=== PATIENT | female | born 1990 | race Caucasian/White ===

== ENCOUNTER 2019-02-02 16:03 | Day surgery (SDC) | payer SELFPAY ==
[~2019-02-02 16:03] MED LIST: BUPIVACAINE HCL/PF 0.5% (5 MG/ML) 30 ML VIAL IJ ONE
[2019-02-02 16:11] VITALS: BMI 29.5
[2019-02-02] MEDS ORDERED: SODIUM CHLORIDE 1,000 ML IV STA (17:22)
[2019-02-02] MEDS ORDERED: ACETAMINOPHEN 1000 MG/100 ML VIAL (NON FORMULARY) IVPB ONE (17:22)
[2019-02-02] MEDS ORDERED: ONDANSETRON 4 MG/2 ML VIAL IVPUSH ONE (17:23)
[2019-02-02 17:50] LABS: PH,URINE 5.5 (5.0-8.0); URINE APPEARANCE CLEAR; URINE BILIRUBIN NEGATIVE (NEGATIVE); URINE COLOR YELLOW; URINE GLUCOSE (UA) NEGATIVE (NEGATIVE); URINE KETONE NEGATIVE (NEGATIVE); URINE LEUK ESTERASE NEGATIVE (NEGATIVE); URINE NITRITE NEGATIVE (NEGATIVE); URINE PROTEIN NEGATIVE (NEGATIVE); URINE UROBILINOGEN 0.2 mg/dL (0.2-1.0)
[2019-02-02 18:03] LABS: BASO % 0.3 % (0-2.0); EOS % 0.5 % (0-4.5); HEMATOCRIT 42.3 % (32.4-45.2); HEMOGLOBIN 13.8 GM/dL (10.7-15.3); LYMPH % 20.9 % (8-40); MCH 27.6 pg (25.7-33.7); MCHC 32.5 g/dl (32.0-36.0); MEAN CELL VOLUME 84.8 fl (80-96); MEAN PLT VOLUME 8.5 fl (7.5-11.1); MONO % 7.1 % (3.8-10.2); NEUT % 71.2 % (42.8-82.8); PLATELET COUNT 301 K/MM3 (134-434); RBC 4.99 M/mm3 (3.60-5.2); RDW 13.9 % (11.6-15.6); WHITE BLOOD COUNT 12.6 K/mm3 (4.0-10.0)
[2019-02-02] MEDS ORDERED: ACETAMINOPHEN INJECTION 100 ML IVPB ONE (18:10)
[2019-02-02] MEDS ORDERED: ONDANSETRON 4 MG/2 ML VIAL ONE (18:11)
[2019-02-02 18:16] LABS: INR 1.08 (0.83-1.09); PROTHROMBIN TIME (PATIENT) 12.7 SEC (9.7-13.0)
[2019-02-02 18:39] LABS: ALBUMIN 4.1 g/dl (3.4-5.0); BILIRUBIN,TOTAL 0.4 mg/dL (0.2-1); BLOOD UREA NITROGEN 8.1 mg/dL (7-18); CALCIUM 9.5 mg/dL (8.5-10.1); CREATININE 0.7 mg/dL (0.55-1.3); POTASSIUM 3.9 mmol/L (3.5-5.1); TOT PROT 7.9 g/dl (6.4-8.2)
--- NOTE | 2019-02-02 19:14 | PDOC ---
History of Present Illness - General History Source: Patient Exam Limitations: No Limitations <Geetha Lamas - Last Filed: 02/03/19 08:48> <MicheletCorey - Last Filed: 02/06/19 15:02> - General Chief Complaint: Pain, Acute Stated Complaint: LOWER ABD PAIN Time Seen by Provider: 02/02/19 17:03 Past History - Past Medical History COPD: No - Reproductive History Is Patient Now?: Yes - Suicide/Smoking/Psychosocial Hx Smoking History: Never smoked Hx Alcohol Use: Yes Drug/Substance Use Hx: No <JuanharrisGeetha torres - Last Filed: 02/03/19 08:48> <MicheletCorey - Last Filed: 02/06/19 15:02> - Past Medical History Allergies/Adverse Reactions: Allergies Allergy/AdvReac Type Severity Reaction Status Date / Time No Known Allergies Allergy Verified 02/02/19 16:11 Review of Systems - Review of Systems Able to Perform ROS?: Yes Comments:: 02/03/19 08:48 CONSTITUTIONAL: Absent: fever, chills, diaphoresis, generalized weakness, malaise, loss of appetite HEENT: Absent: rhinorrhea, nasal congestion, throat pain, throat swelling, difficulty swallowing, mouth swelling, ear pain, eye pain, visual Changes CARDIOVASCULAR: Absent: chest pain, loss of consciousness, palpitations, irregular heart rate, peripheral edema RESPIRATORY: Absent: cough, shortness of breath, dyspnea with exertion, orthopnea, wheezing, stridor, hemoptysis GASTROINTESTINAL: Present: abdominal pain, vomiting Absent: abdominal distension, diarrhea, constipation, melena, hematochezia GENITOURINARY: Absent: dysuria, frequency, urgency, hesitancy, hematuria, flank pain, genital pain MUSCULOSKELETAL: Absent: myalgia, arthralgia, joint swelling SKIN: Absent: rash, itching, pallor HEMATOLOGIC/IMMUNOLOGIC: Absent: easy bleeding, easy bruising, lymphadenopathy, frequent infections ENDOCRINE: Absent: unexplained weight gain, unexplained weight loss, heat intolerance, cold intolerance NEUROLOGIC: Absent: headache, focal weakness or paresthesias, dizziness, unsteady gait, seizure, mental status changes, bladder or bowel incontinence PSYCHIATRIC: Absent: anxiety, depression, suicidal or homicidal ideation, hallucinations. Is the patient limited Luxembourger proficient: No <JuanharrismelissaGeetha - Last Filed: 02/03/19 08:48> *Physical Exam - Vital Signs Last Vital Signs Temp Pulse Resp BP Pulse Ox 99.2 F 119 H 18 144/86 100 02/02/19 16:08 02/02/19 16:08 02/02/19 16:08 02/02/19 16:08 02/02/19 16:08 - Physical Exam Comments: 02/03/19 08:49 GENERAL: Well developed, well nourished. Awake and alert. Mild acute distress d/t pain. HEENT: Normocephalic, atraumatic. PERRLA, EOMI. No conjunctival pallor. Sclera are non- icteric. Moist mucous membranes. Oropharynx is clear. NECK: Supple. Full ROM. No JVD. Carotid pulses 2+ and symmetric, without bruits. No thyromegaly. No lymphadenopathy. CARDIOVASCULAR: Regular rate and rhythm. No murmurs, rubs, or gallops. Distal pulses are 2+ and symmetric. PULMONARY: No evidence of respiratory distress. Lungs clear to auscultation bilaterally. No wheezing, rales or rhonchi. ABDOMINAL: TTP of the LLQ/L adnexa with guarding and rebound. Soft. Non-distended. No organomegaly. Normoactive bowel sounds. MUSCULOSKELETAL Normal range of motion at all joints. No bony deformities or tenderness. No CVA tenderness. EXTREMITIES: No cyanosis. No clubbing. No edema. No calf tenderness. SKIN: Warm and dry. Normal capillary refill. No rashes. No jaundice. NEUROLOGICAL: Alert, awake, appropriate. Cranial nerves 2-12 intact. No deficits to light touch and temperature in face, upper extremities and lower extremities. No motor deficits in the in face, upper extremities and lower extremities. Normoreflexic in the upper and lower extremities. Normal speech. Toes are down- going bilaterally. Gait is normal without ataxia. PSYCHIATRIC: Cooperative. Good eye contact. Appropriate mood and affect. <Geetha Lamas - Last Filed: 02/03/19 08:48> - Vital Signs Last Vital Signs Temp Pulse Resp BP Pulse Ox 98.3 F 94 H 20 117/74 96 02/03/19 06:00 02/03/19 06:00 02/03/19 06:00 02/03/19 06:00 02/03/19 01:11 <Corey Tafoya - Last Filed: 02/06/19 15:02> ED Treatment Course - LABORATORY CBC & Chemistry Diagram: 02/02/19 17:50 02/02/19 17:50 - ADDITIONAL ORDERS Additional order review: Laboratory Results 02/02/19 02/02/19 02/02/19 17:50 17:50 17:50 PT with INR 12.70 INR 1.08 Sodium 140 Potassium 3.9 Chloride 103 Carbon Dioxide 26 Anion Gap 10 BUN 8.1 Creatinine 0.7 Est GFR (CKD-EPI)AfAm 135.70 Est GFR (CKD-EPI)NonAf 117.08 Random Glucose 108 H Calcium 9.5 Total Bilirubin 0.4 AST 15 ALT 16 Alkaline Phosphatase 87 Total Protein 7.9 Albumin 4.1 Urine Color Urine Appearance Urine pH Ur Specific [place] Urine Protein Urine Glucose (UA) Urine Ketones Urine Blood Urine Nitrite Urine Bilirubin Urine Urobilinogen Ur Leukocyte Esterase Urine HCG, Qual Blood Type O POSITIVE Antibody Screen Negative 02/02/19 02/02/19 17:38 17:38 PT with INR INR Sodium Potassium Chloride Carbon Dioxide Anion Gap BUN Creatinine Est GFR (CKD-EPI)AfAm Est GFR (CKD-EPI)NonAf Random Glucose Calcium Total Bilirubin AST ALT Alkaline Phosphatase Total Protein Albumin Urine Color Yellow Urine Appearance Clear Urine pH 5.5 Ur Specific [place] 1.007 L Urine Protein Negative Urine Glucose (UA) Negative Urine Ketones Negative Urine Blood Negative Urine Nitrite Negative Urine Bilirubin Negative Urine Urobilinogen 0.2 Ur Leukocyte Esterase Negative Urine HCG, Qual Positive Blood Type Antibody Screen 02/02/19 17:50 RBC 4.99 MCV 84.8 MCHC 32.5 RDW 13.9 MPV 8.5 Neutrophils % 71.2 Lymphocytes % 20.9 Monocytes % 7.1 Eosinophils % 0.5 Basophils % 0.3 - RADIOLOGY Radiology Studies Ordered: Category Date Time Status TRANSVAGINAL US PREG [US] Stat Ultrasound 02/02/19 18:01 Completed - Medications Given in the ED: ED Medications Discontinued Medications Generic Name Dose Route Start Last Admin Trade Name Freq PRN Reason Stop Dose Admin Acetaminophen 1,000 mg 02/02/19 17:22 02/02/19 18:04 Ofirmev Injection - IVPB 02/02/19 17:23 1,000 mg ONCE ONE Administration Sodium Chloride 1,000 mls @ 1,000 mls/hr 02/02/19 17:22 02/02/19 18:04 Normal Saline - IV 02/02/19 18:21 1,000 mls/hr ASDIR STA Administration Ondansetron HCl 4 mg 02/02/19 17:23 02/02/19 18:04 Zofran Injection IVPUSH 02/02/19 17:24 4 mg ONCE ONE Administration <Geetha Lamas - Last Filed: 02/03/19 08:48> - LABORATORY CBC & Chemistry Diagram: 02/02/19 17:50 02/02/19 17:50 - ADDITIONAL ORDERS Additional order review: 02/02/19 17:38 Urine Culture - Final Urine - Urine Clean Catch NO GROWTH OBTAINED 02/02/19 17:50 RBC 4.99 MCV 84.8 MCHC 32.5 RDW 13.9 MPV 8.5 Neutrophils % 71.2 Lymphocytes % 20.9 Monocytes % 7.1 Eosinophils % 0.5 Basophils % 0.3 - Medications Given in the ED: ED Medications Discontinued Medications Generic Name Dose Route Start Last Admin Trade Name Silviano PRN Reason Stop Dose Admin Acetaminophen 1,000 mg 02/02/19 17:22 02/02/19 18:04 Ofirmev Injection - IVPB 02/02/19 17:23 1,000 mg ONCE ONE Administration Fentanyl 50 mcg 02/02/19 21:31 02/03/19 00:30 Sublimaze Injection - IVPUSH 50 mcg [id number] PRN Administration PAIN-PACU ORDER X 4 DOSES ONLY Sodium Chloride 1,000 mls @ 1,000 mls/hr 02/02/19 17:22 02/02/19 18:04 Normal Saline - IV 02/02/19 18:21 1,000 mls/hr ASDIR STA Administration Lactated Ringer's 1,000 mls @ 125 mls/hr 02/02/19 21:45 02/02/19 22:26 Lactated Ringers Solution IV 125 mls/hr ASDIR KARENA Administration Ibuprofen 800 mg 02/03/19 00:42 02/03/19 03:00 Caldolor Injection - IVPB 02/03/19 00:43 800 mg ONCE ONE Administration Ondansetron HCl 4 mg 02/02/19 17:23 02/02/19 18:04 Zofran Injection IVPUSH 02/02/19 17:24 4 mg ONCE ONE Administration <Corey Tafoya - Last Filed: 02/06/19 15:02> Medical Decision Making - Medical Decision Making 02/02/19 19:08 Pt is a 28 y/o F with no PMH who presents to the ER with LLQ/adenexal pain for the past 3 days. She states the pain has slowly gotten worse over the past three days. She states the pain is worse with standing or sitting. States her last LMP was on 01/19; however, it was shorter than usual. Her last normal LMP was 12/19. Denies vaginal bleeding, fever, vomiting, dysuria, flank pain. A/P: LLQ pain L adnexal pain on exam with rebound/guarding High suspsion for ectopic Urine preg (+) US shows a complex mass in the L adenxa Pending beta; needs RECEIVING TANK OPERATOR consult Ofirmev and fluids given T&S and PTT sent Sign out given to JAMILA Murcia <Geetha Lamas - Last Filed: 02/03/19 08:48> - Medical Decision Making The patient was seen and evaluated in conjunction with ERIKA Lamas under my direct supervision, ancillary studies were reviewed. I agree with the plan as outlined by ERIKA Lamas . Briefly pt is a 28y F presenting to the ED with L adnexal pain for 3 days. Pt had a +urine HCG here, had TVUS noted for No IUP with a complex left adnexal structure suspcious for possible ectopic.awaiting ob gyn consultation <Corey Tafoya - Last Filed: 02/06/19 15:02> *DC/Admit/Observation/Transfer <Geetha Lamas - Last Filed: 02/03/19 08:48> <Corey Tafoya - Last Filed: 02/06/19 15:02> Diagnosis at time of Disposition: Ectopic without intrauterine - Discharge Dispostion Disposition: HOME Condition at time of disposition: Good
--- NOTE | 2019-02-02 19:34 | PDOC ---
*Physical Exam - Vital Signs Last Vital Signs Temp Pulse Resp BP Pulse Ox 99.2 F 119 H 18 144/86 100 02/02/19 16:08 02/02/19 16:08 02/02/19 16:08 02/02/19 16:08 02/02/19 16:08 - Physical Exam General Appearance: Yes: Appropriately Dressed. No: Apparent Distress Neck: positive: Trachea midline Respiratory/Chest: positive: Lungs Clear, Normal Breath Sounds. negative: Respiratory Distress, Accessory Muscle Use Cardiovascular: positive: Regular Rhythm, Tachycardia Gastrointestinal/Abdominal: positive: Other (left pelvic tenderness) ED Treatment Course - LABORATORY CBC & Chemistry Diagram: 02/02/19 17:50 02/02/19 17:50 - ADDITIONAL ORDERS Additional order review: Laboratory Results 02/02/19 02/02/19 02/02/19 17:50 17:50 17:50 PT with INR 12.70 INR 1.08 Sodium 140 Potassium 3.9 Chloride 103 Carbon Dioxide 26 Anion Gap 10 BUN 8.1 Creatinine 0.7 Est GFR (CKD-EPI)AfAm 135.70 Est GFR (CKD-EPI)NonAf 117.08 Random Glucose 108 H Calcium 9.5 Total Bilirubin 0.4 AST 15 ALT 16 Alkaline Phosphatase 87 Total Protein 7.9 Albumin 4.1 Urine Color Urine Appearance Urine pH Ur Specific [place] Urine Protein Urine Glucose (UA) Urine Ketones Urine Blood Urine Nitrite Urine Bilirubin Urine Urobilinogen Ur Leukocyte Esterase Urine HCG, Qual Blood Type O POSITIVE Antibody Screen Negative 02/02/19 02/02/19 17:38 17:38 PT with INR INR Sodium Potassium Chloride Carbon Dioxide Anion Gap BUN Creatinine Est GFR (CKD-EPI)AfAm Est GFR (CKD-EPI)NonAf Random Glucose Calcium Total Bilirubin AST ALT Alkaline Phosphatase Total Protein Albumin Urine Color Yellow Urine Appearance Clear Urine pH 5.5 Ur Specific [place] 1.007 L Urine Protein Negative Urine Glucose (UA) Negative Urine Ketones Negative Urine Blood Negative Urine Nitrite Negative Urine Bilirubin Negative Urine Urobilinogen 0.2 Ur Leukocyte Esterase Negative Urine HCG, Qual Positive Blood Type Antibody Screen 02/02/19 17:50 RBC 4.99 MCV 84.8 MCHC 32.5 RDW 13.9 MPV 8.5 Neutrophils % 71.2 Lymphocytes % 20.9 Monocytes % 7.1 Eosinophils % 0.5 Basophils % 0.3 - Medications Given in the ED: ED Medications Discontinued Medications Generic Name Dose Route Start Last Admin Trade Name Silviano PRN Reason Stop Dose Admin Acetaminophen 1,000 mg 02/02/19 17:22 02/02/19 18:04 Ofirmev Injection - IVPB 02/02/19 17:23 1,000 mg ONCE ONE Administration Sodium Chloride 1,000 mls @ 1,000 mls/hr 02/02/19 17:22 02/02/19 18:04 Normal Saline - IV 02/02/19 18:21 1,000 mls/hr ASDIR STA Administration Ondansetron HCl 4 mg 02/02/19 17:23 02/02/19 18:04 Zofran Injection IVPUSH 02/02/19 17:24 4 mg ONCE ONE Administration Progress Note - Progress Note Progress Note: Received signout from ERIKA Lamas. Briefly this is a 28-year-old woman presents emergency department for evaluation of 3 days of left pelvic pain. Patient reports she had a positive home test. Patient states LMP 01/18/19. Patient reports her period only lasted 3 days and when she usually has 7 days of menses. Patient reports her flow was normal during that time. Previous menstrual period was 12/08 which is approximately 2 weeks late. Patient denies vaginal bleeding at this time. CBC notable for elevated WBC-12.6. Coagulation profile is within normal limits. Chemistries are unremarkable. Urinalysis is unremarkable Ultrasound as read by Dr. Solano reveals a 2.3 x 2 cm left adnexal complex structure suggestive of an ectopic , less likely representing an exophytic complex ovarian cyst. Beta hCG is pending. Patient's EMBOSSER OPERATOR is in the [facility]. Medical Decision Making - Medical Decision Making 02/02/19 20:12 Patient's beta hCG 13,700. Case has been discussed with Dr. Joseph of EMBOSSER OPERATOR who will come to evaluate patient. *DC/Admit/Observation/Transfer Diagnosis at time of Disposition: Ectopic without intrauterine - Discharge Dispostion Disposition: HOME Condition at time of disposition: Good Decision to Admit order: Yes - Referrals - Patient Instructions Additional Instructions: Regular diet F/U in clinic in 2 weeks - Post Discharge Activity
[2019-02-02] MEDS ORDERED: ONDANSETRON 4 MG/2 ML VIAL IVPUSH PRN (21:31)
--- NOTE | 2019-02-02 21:44 | HP ---
Admitting History and Physical - Admission Chief Complaint: LLQ pain History of Present Illness: 28 yo , LMP unknown, presents to ER from [facility] c/o left sided pain associated with nausea and vomiting. exam is positive. Transvaginal sonogram shows evidence of a complex mass on the left side suspicious of ectopic . History Source: Patient Limitations to Obtaining History: No Limitations - Past Medical History ...LMP: 01/18/19 ...: Yes - Past Surgical History Past Surgical History: Yes: None - Smoking History Smoking history: Never smoked - Alcohol/Substance Use Hx Alcohol Use: Yes - Social History Usual Living Arrangement: Yes: With Parent History of Recent Travel: Yes ([facility]) Home Medications - Allergies Allergies/Adverse Reactions: Allergies Allergy/AdvReac Type Severity Reaction Status Date / Time No Known Allergies Allergy Verified 02/02/19 16:11 Family Disease History - Family Disease History Family History: Unremarkable Review of Systems - Review of Systems Constitutional: reports: No Symptoms Eyes: reports: No Symptoms HENT: reports: No Symptoms Neck: reports: No Symptoms Cardiovascular: reports: No Symptoms Respiratory: reports: No Symptoms Gastrointestinal: reports: No Symptoms Genitourinary: reports: Pain Breasts: reports: No Symptoms Reported Musculoskeletal: reports: No Symptoms Integumentary: reports: No Symptoms Neurological: reports: No Symptoms Endocrine: reports: No Symptoms Hematology/Lymphatic: reports: No Symptoms Psychiatric: reports: No Symptoms Pain Intensity: 4 Physical Examination Vital Signs: Vital Signs Temperature 99.2 F 02/02/19 16:08 Pulse Rate 119 H 02/02/19 16:08 Respiratory Rate 18 02/02/19 16:08 Blood Pressure 144/86 02/02/19 16:08 O2 Sat by Pulse Oximetry (%) 100 02/02/19 16:08 Constitutional: Yes: Well Nourished Eyes: Yes: Conjunctiva Clear HENT: Yes: Atraumatic Neck: Yes: Supple Cardiovascular: Yes: Regular Rate and Rhythm Respiratory: Yes: Regular Gastrointestinal: Yes: Normal Bowel Sounds Neurological: Yes: Alert, Oriented ...Motor Strength: WNL Psychiatric: Yes: Alert, Oriented Labs: CBC, BMP 02/02/19 17:50 02/02/19 17:50 Problem List - Problems (1) Ectopic without intrauterine Code(s): O00.90 - UNSPECIFIED ECTOPIC WITHOUT INTRAUTERINE Qualifiers: Location of ectopic : tubal Laterality: left Qualified Code(s): O00.102 - Left tubal without intrauterine Assessment/Plan Left ectopic Pre op for Laparoscopic salpingectomy Consent signed Anesthesia to see patient
[2019-02-02] MEDS ORDERED: LACTATED RINGERS SOLUTION 1,000 ML IV SCH (21:45)
[2019-02-02] MEDS ORDERED: MIDAZOLAM HCL 2 MG/2 ML SINGLE DOSE VIAL ONE (22:22)
[2019-02-02] MEDS ORDERED: PROPOFOL 20 ML ONE ×2 (22:23)
[2019-02-02] MEDS ORDERED: SUCCINYLCHOLINE CHLORIDE 200 MG/10 ML SYRINGE ONE (22:23)
[2019-02-02] MEDS ORDERED: ROCURONIUM BROMIDE 50 MG/5 ML SYRINGE ONE (22:23)
[2019-02-02] MEDS ORDERED: NEOSTIGMINE METHYLSULFATE 0.5 MG/ML - 10 ML MDV ONE (23:05)
[2019-02-02] MEDS ORDERED: DEXAMETHASONE SOD PHOSPHATE 4 MG/1 ML VIAL ONE (23:06)
[2019-02-02] MEDS ORDERED: GLYCOPYRROLATE 0.2 MG/1 ML VIAL ONE (23:15)
[2019-02-02] MEDS ORDERED: KETOROLAC TROMETHAMINE 30 MG/1 ML VIAL ONE (23:18)
[2019-02-02] MEDS ORDERED: BUPIVACAINE HCL/PF 0.5% (5 MG/ML) 30 ML VIAL IJ ONE ×2 (23:39→23:57)
--- NOTE | 2019-02-03 00:39 | OP ---
Operative Note - Note: Operative Date: 02/02/19 Pre-Operative Diagnosis: Left tubal Operation: Laparoscopic left salpingectomy Findings: Left tubal Post-Operative Diagnosis: Same as Pre-op Surgeon: Mary Ann Joseph Rate Analyst: Patel Vargas Anesthesia: General Specimens Removed: Tubal Estimated Blood Loss (mls): 50
[2019-02-03] MEDS ORDERED: oxyCODONE HCL 5 MG TABLET PO PRN (00:41)
[2019-02-03] MEDS ORDERED: IBUPROFEN 800 MG/8 ML IJ IVPB ONE (00:42)
[2019-02-03] MEDS ORDERED: DEXTROSE 5%-LACTATED RINGERS 1,000 ML IV SCH (00:45)
--- NOTE | 2019-02-03 00:49 | DS ---
Physical Examination Vital Signs: Vital Signs Temperature 98 F 02/03/19 00:16 Pulse Rate 95 H 02/03/19 00:16 Respiratory Rate 16 02/03/19 00:16 Blood Pressure 104/57 L 02/03/19 00:16 O2 Sat by Pulse Oximetry (%) 98 02/03/19 00:16 Constitutional: No: No Distress Eyes: Yes: Conjunctiva Clear HENT: Yes: Atraumatic Neck: Yes: Supple Cardiovascular: Yes: Regular Rate and Rhythm Respiratory: Yes: Regular Gastrointestinal: Yes: Normal Bowel Sounds Breast(s): Yes: WNL Neurological: Yes: Alert, Oriented ...Motor Strength: WNL Psychiatric: Yes: Alert, Oriented Labs: CBC, BMP 02/02/19 17:50 02/02/19 17:50 Discharge Summary Reason For Visit: LOWER ABD PAIN Current Active Problems Ectopic without intrauterine (Acute) Ectopic without intrauterine (Acute) Status post laparoscopy (Acute) Procedures: Principal: Laparoscopic salpingectomy Hospital Course: Patient presented to ER and was diagnosed with ectopic . She wa then taken to OR for Laparoscopic salpingectomy. Condition: Good - Instructions Diet, Activity, Other Instructions: Regular diet F/U in clinic in 2 weeks Disposition: HOME
[2019-02-03 06:28] VITALS: BP 117/74; PULSE 94; TEMP 98.3
--- NOTE | 2019-02-05 11:40 | PATH ---
Surgical Pathology Report Patient Name: SALVADOR CUEVAS [facility]. Rec. #: [id number] /Age/Gender: 1990 (Age: 28) / F Account: [id number] Location: AMBULATORY SURG Taken: 02/02/2019 Received: 02/03/2019 Reported: 02/05/2019 Physicians: Mary Ann Joseph M.D. Specimen(s) Received LEFT FALLOPAIN TUBAL PREGANCY Clinical History Left ectopic Final Diagnosis LEFT FALLOPIAN TUBAL , SALPINGECTOMY: ECTOPIC (LEFT TUBAL) . Electronically Signed Darrin Bellamy M.D. Gross Description Received in formalin, labeled "left fallopian tube " it's a portion of fallopian tube with attached Fimbria measuring 6 cm in length. The proximal portion of fallopian tube show dilated lumen measuring 1.6 cm in diameter. The serosal surface is smooth, no blood clot present. Serial sections reveal white soft tissue admixed with blood clot in the lumen. Printed Circuit Board Panels Developer sections submitted into cassettes. MARY/02/03/2019 willian/02/03/2019
--- NOTE | 2019-02-06 16:55 | OP ---
DATE OF OPERATION: 02/02/2019 PREOPERATIVE DIAGNOSIS: Left tubal . POSTOPERATIVE DIAGNOSIS: Left tubal . PROCEDURE: Laparoscopic left salpingectomy. SURGEON: Mary Ann Joseph MD VISUAL BASIC .NET DEVELOPER: ERIKA Mayers ANESTHESIA: General. COMPLICATIONS: None. ESTIMATED BLOOD LOSS: 50 mL. DESCRIPTION OF PROCEDURE: Patient was taken to the operating room where general anesthesia was administered. Patient was then prepped and draped in proper sterile fashion. She was placed in lithotomy position. A weighted speculum was placed in the patient's vagina, and the anterior lip of the cervix was grasped with a single-tooth tenaculum. A Ummi uterine manipulator was then advanced into the uterus to manipulate the uterus. The speculum was removed from the vagina. Attention was then turned to the patient's abdomen where a 5-mm skin incision was made in the umbilical fold. A Veress needle was carefully introduced into the peritoneal cavity while tenting the abdominal wall. Intraperitoneal placement was confirmed by use of a water-filled syringe and drop in intraabdominal pressure with insufflation of CO2 gas. The trocar and sleeve were then advanced without difficulty into the abdomen, where intraabdominal placement was confirmed by the laparoscope. Pneumoperitoneum was obtained with 3 L of CO2 gas, and the 5-mm trocar and sleeve were then advanced without difficulty into the abdomen, where intraabdominal placement was confirmed by the laparoscope. A second skin incision was made 3 cm above the pubic symphysis and 5 cm away from the midline on the left side. The trocar and sleeve were then advanced under direct visualization. A third skin incision was made on the right side 3 cm above the pubic symphysis and 5 cm away from the midline. The third trocar and sleeve were then advanced under direct visualization. A survey of the patient's pelvis and abdomen revealed a left tubal . There was no hemoperitoneum noted. The right tube and ovary were intact. Then using the LigaSure device, the left tube was then clamped and cut along with the tubal . Then using an Endo bag on the right side, the left tubal was removed from the abdomen. Then the instruments were removed. The fascia on the right side was closed with Endo sutures, and all the incisions were closed using 3-0 Vicryl. Patient tolerated the procedure well. Patient was then taken out of lithotomy position. She was taken to PACU in stable condition. PATHOLOGY: Left tubal . MARY ANN JOSEPH M.D. [id number]
== END 2019-02-03 06:29 | disposition home or self-care (01) ==
LOC: JER 16:03 → JASUSAT 02-03 01:01 → J3W 02-03 01:15 → JASUSAT 02-03 06:29
PROVIDERS: ATTEND Obstetrics & Gynecology
CPT/HCPCS: 36415; 76817-TC; 80053; 81003; 84702; 84703; 85025; 85610; 86850; 86900; 86901; 87086; 88305-TC; 94760; 99284-25; J0131; J7030